=== PATIENT | female | born 1975 | race Caucasian/White ===

== ENCOUNTER 2017-01-12 12:12 | Emergency (ER) | payer OTHER ==
[~2017-01-12] VITALS: Ht 167.6 cm; Wt 97.5 kg
[~2017-01-12 12:12] MED LIST: ALPR1TAB2 PO; BACL10TA PO; BUTA1CAP39 PO; CYCL10TA9 PO; GABA-488 PO; HYDR-3812 PO; HYDR-3816 PO; NAPR550T PO; PRD20T PO
[2017-01-12] MEDS ORDERED: NS IV 1000 ML 1,000 ML IV ONE (13:03)
[2017-01-12] MEDS ORDERED: fentaNYL INJECTION 100 MCG/2 ML AMP IVP STA (13:03)
[2017-01-12] MEDS ORDERED: ONDANSETRON 4 MG/2 ML (SDV) Z0FRAN IVP ONE (13:15)
--- NOTE | 2017-01-12 13:50 | Diagnostic Imaging Report ---
Indication: Chest pain radiating down the right arm. Discussion: Single portable upright view of the chest was obtained, no comparison. The heart and lungs are normal. No osseous abnormality. Impression: 1. Negative portable chest. Dictated by: Dictated on workstation # [id number]
[2017-01-12 14:01] LABS: BASOPHILS % (AUTO) 0 % (0-10); EOSINOPHILS % (AUTO) 0 % (0-10); LYMPHOCYTES # (AUTO) 2.1 X 10^3 (1.0-4.0); LYMPHOCYTES % (AUTO) 22 % (12-44); MEAN CORPUSCULAR HEMOGLOBIN 23 PG (25-34); MEAN CORPUSCULAR HGB CONC 31 G/DL (32-36); MEAN CORPUSCULAR VOLUME 73 FL (80-99); MEAN PLATELET VOLUME 11.9 FL (7.4-10.4); MONOCYTES # (AUTO) 0.7 X 10^3 (0.0-1.0); MONOCYTES % (AUTO) 7 % (0-12); NEUTROPHILS # (AUTO) 6.7 X 10^3 (1.8-7.8); NEUTROPHILS % (AUTO) 70 % (42-75); PLATELET COUNT 291 10^3/uL (130-400); RED BLOOD COUNT 5.24 10^6/uL (4.35-5.85); RED CELL DISTRIBUTION WIDTH 16.2 % (10.0-14.5); WHITE BLOOD COUNT 9.5 10^3/uL (4.3-11.0)
--- NOTE | 2017-01-12 14:01 | ED General ---
General Chief Complaint: Head/Cervical Problems Stated Complaint: NECK/RIGHT SHOULDER ARM PAIN Nursing Triage Note: Pt had a epidural on in for a "pinched nerve" from a work related incident at [facility]. Today at 1000 pt noticed increased neck pain and right arm tingling/numbness. Had fever over the weekend. Nursing Sepsis Screen: No Definite Risk Source of Information: Patient Exam Limitations: No Limitations (CAROL BARNES) Allergies and Home Medications Allergies Coded Allergies: aspirin (Unverified Allergy, Unknown, 06/23/16) azithromycin (Unverified Allergy, Unknown, 06/23/16) diclofenac (Unverified Allergy, Unknown, 06/23/16) morphine (Unverified Allergy, Unknown, 06/23/16) Home Medications Baclofen 10 Mg Tablet, 10 MG PO TID, (Reported) Cefdinir 300 Mg Capsule, 300 MG PO BID, #14 Ref 0 Prescribed by: CAROL BARNES on 01/12/17 1525 Gabapentin 300 Mg Capsule, 300 MG PO TID, (Reported) Hydrocodone/Acetaminophen 1 Each Tablet, 1 EACH PO Q4H PRN for PAIN, #14 Ref 0 Prescribed by: CAROL BARNES on 01/12/17 1525 Naproxen Sodium 550 Mg Tablet, 550 MG PO BID, (Reported) Past Ubjifrm-Lvskjl-Wwzzws Hx Patient Social History Recent Foreign Travel: No Contact w/Someone Who Travel: No Recent Infectious Disease Expo: No Recent Hopitalizations: No (CAROL BARNES) Surgeries HX Surgeries: Yes Surgeries: Tonsillectomy, Tubal Ligation (CAROL BARNES) Respiratory Hx Respiratory Disorders: No (CAROL BARNES) Cardiovascular Hx Cardiac Disorders: No (CAROL BARNES) Neurological Hx Neurological Disorders: Yes Neurological Disorders: Headaches /Migraines (CAROL BARNES) Reproductive System Hx 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 (CAROL BARNES) Genitourinary Hx Genitourinary Disorders: No (CAROL ABRNES) Gastrointestinal Hx Gastrointestinal Disorders: No (CAROL BARNES) Musculoskeletal Hx Musculoskeletal Disorders: Yes Musculoskeletal Disorders: Back Injury (CAROL BARNES) Endocrine Hx Endocrine Disorders: No (CAROL BARNES) HEENT HX ENT Disorders: No (ACROL BARNES) Cancer Hx Cancer: No (CAROL BARNES) Psychosocial Hx Psychiatric Problems: Yes Behavioral Health Disorders: Anxiety (CAROL BARNES) Integumentary HX Skin/Integumentary Disorder: No (CAROL BARNES) Blood Transfusions Hx Blood Disorders: Yes (ANEMIA) Adverse Reaction to a Blood Tr: No (CAROL BARNES) Family Medical History Significant Family History: No Pertinent Family Hx (CAROL BARNES) Physical Exam Vital Signs Vital Sign - Last 12Hours 01/12/17 12:30 Temp 97.5 Pulse 120 Resp 20 B/P (MAP) 143/95 Pulse Ox 98 (ALFA CALDERON MD) Vital Signs Capillary Refill : Less Than 3 Seconds (CAROL BARNES) Focused Exam Lactic Acid Level Laboratory Tests Test 01/12/17 14:10 Lactic Acid Level 0.95 MMOL/L (0.50-2.00) (ALFA CALDERON MD) Progress/Results/Core Measures Results/Orders Lab Results Laboratory Tests Test 01/12/17 13:50 01/12/17 14:10 Range/Units White Blood Count 9.5 4.3-11.0 10^3/uL Red Blood Count 5.24 4.35-5.85 10^6/uL Hemoglobin 11.8 11.5-16.0 G/DL Hematocrit 38 35-52 % Mean Corpuscular Volume 73 L 80-99 FL Mean Corpuscular Hemoglobin 23 L 25-34 PG Mean Corpuscular Hemoglobin Concent 31 L 32-36 G/DL Red Cell Distribution Width 16.2 H 10.0-14.5 % Platelet Count 291 130-400 10^3/uL Mean Platelet Volume 11.9 H 7.4-10.4 FL Neutrophils (%) (Auto) 70 42-75 % Lymphocytes (%) (Auto) 22 12-44 % Monocytes (%) (Auto) 7 0-12 % Eosinophils (%) (Auto) 0 0-10 % Basophils (%) (Auto) 0 0-10 % Neutrophils # (Auto) 6.7 1.8-7.8 X 10^3 Lymphocytes # (Auto) 2.1 1.0-4.0 X 10^3 Monocytes # (Auto) 0.7 0.0-1.0 X 10^3 Eosinophils # (Auto) 0.0 0.0-0.3 10^3/uL Basophils # (Auto) 0.0 0.0-0.1 10^3/uL Erythrocyte Sedimentation Rate 12 0-20 MM/HR Sodium Level 141 135-145 MMOL/L Potassium Level 3.7 3.6-5.0 MMOL/L Chloride Level 110 H 98-107 MMOL/L Carbon Dioxide Level 22 21-32 MMOL/L Anion Gap 9 5-14 MMOL/L Blood Urea Nitrogen 14 7-18 MG/DL Creatinine 0.86 0.60-1.30 MG/DL Estimat Glomerular Filtration Rate > 60 BUN/Creatinine Ratio 16 Glucose Level 94 70-105 MG/DL Calcium Level 9.1 8.5-10.1 MG/DL Total Bilirubin 0.2 0.1-1.0 MG/DL Aspartate Amino Transf (AST/SGOT) 14 5-34 U/L Alanine Aminotransferase (ALT/SGPT) 20 0-55 U/L Alkaline Phosphatase 85 40-136 U/L C-Reactive Protein High Sensitivity 0.07 0.00-0.50 MG/DL Total Protein 7.4 6.4-8.2 G/DL Albumin 4.2 3.2-4.5 G/DL Lactic Acid Level 0.95 0.50-2.00 MMOL/L (ALFA CALDERON MD) Micro Results Microbiology 01/12/17 Influenza Types A,B Antigen (RADHA) - Final, Complete (ALFA CALDERON MD) Medications Given in ED Current Medications Medications Dose Ordered Sig/Lilliana Route Start Time Stop Time Status Last Admin Dose Admin Ceftriaxone Sodium 1000 mg/ Sodium Chloride 50 ml @ 100 mls/hr ONCE ONCE IV 01/12/17 15:15 01/12/17 15:44 01/12/17 15:23 100 MLS/HR Ondansetron HCl 4 mg ONCE ONCE IVP 01/12/17 13:15 01/12/17 13:16 DC 01/12/17 13:49 4 MG Sodium Chloride 1,000 ml @ 0 mls/hr Q0M ONCE IV 01/12/17 13:03 01/12/17 13:09 DC 01/12/17 13:50 1,000 MLS/HR (ALFA CALDERON MD) Vital Signs/I&O Vital Sign - Last 12Hours 01/12/17 01/12/17 12:30 13:49 Temp 97.5 99.7 Pulse 120 Resp 20 B/P (MAP) 143/95 Pulse Ox 98 (ALFA CALDERON MD) Blood Pressure Mean: 111 Progress Note : Progress Note Seen and evaluated the patient with STELLA Land. I have reviewed the labs. Currently patient's redness of her arm and chest are decreased. There is a question of mild swelling to the right arm. Due to her history, we will initiate treatment with cephalosporin and have her follow up with her doctor. Rocephin 1 g IV and outpatient treatment with Ceftin air ordered. Discharged her Carol Barnes's note. (ALFA CALDERON MD) Departure Impression Impression: Primary Impression: Pain of right upper extremity Additional Impressions: Headache S/P epidural steroid injection Disposition: HOME, SELF-CARE Condition: Improved Departure-Patient Inst. Decision time for Depature: 15:23 (CAROL BARNES) Referrals: [facility] (PCP/Family) Primary Care Physician Patient Instructions: Acute Pain, Adult (DC) Add. Discharge Instructions: All discharge instructions reviewed with patient and/or family. Voiced understanding. Medications as directed. Ice packs or heating pads as needed for pain. Continue activity as instructed by your provider. Follow-up with family practitioner and your request, physician for recheck, call for appointment time today. Return to the emergency department for worsened pain, fever, headache, numbness, weakness, redness, drainage, or any other concerns. Scripts Hydrocodone/Acetaminophen (Hydrocodon -Acetaminophen 5-325) 1 Each Tablet 1 EACH PO Q4H Y for PAIN, #14 TAB 0 Refills Prov: CAROL BARNES 01/12/17 Cefdinir (Cefdinir) 300 Mg Capsule 300 MG PO BID, #14 CAP 0 Refills Prov: CAROL BARNES 01/12/17 CAROL BARNES Jan 12, 2017 14:01 ALFA CALDERON MD Jan 12, 2017 15:40
[2017-01-12 14:20] LABS: ALANINE AMINOTRANSFERASE 20 U/L (0-55); ALBUMIN 4.2 G/DL (3.2-4.5); ANION GAP 9 MMOL/L (5-14); ASPARTATE AMINO TRANSFERASE 14 U/L (5-34); BILIRUBIN,TOTAL 0.2 MG/DL (0.1-1.0); BLOOD UREA NITROGEN 14 MG/DL (7-18); BUN/CREATININE RATIO 16; CALCIUM 9.1 MG/DL (8.5-10.1); CARBON DIOXIDE 22 MMOL/L (21-32); CHLORIDE 110 MMOL/L (98-107); CREATININE SERUM 0.86 MG/DL (0.60-1.30); ERYTHROCYTE SEDIMENTATION RATE 12 MM/HR (0-20); GFR ESTIMATED > 60; GLUCOSE 94 MG/DL (70-105); POTASSIUM 3.7 MMOL/L (3.6-5.0); SODIUM 141 MMOL/L (135-145); TOTAL PROTEIN 7.4 G/DL (6.4-8.2); hs C REACTIVE PROTEIN 0.07 MG/DL (0.00-0.50)
--- NOTE | 2017-01-12 14:25 | Diagnostic Imaging Report ---
PROCEDURE: CT cervical spine without contrast. TECHNIQUE: Multiple contiguous axial images were obtained through the cervical spine without the use of intravenous contrast. Sagittal and coronal reformations were then performed. INDICATION: Neck pain. Right shoulder pain. FINDINGS: There is straightening of the cervical spine curvature. The vertebral body heights are preserved. There is moderate disc height loss at the C5-C6 and C6-C7 levels. Posterior osteophytes are seen at these two levels as well. There is satisfactory alignment at the posterior spinal line, at the facet joints and at the atlanto-occipital joints. Satisfactory alignment at the lateral masses of C1 and C2 is also seen. No fracture is identified. There is [id number] foraminal stenosis on the left side at the C6-C7 level and moderate stenosis on the right side at C5-C6. Other foramina demonstrate no significant stenosis. There is suggestion of spinal canal stenosis at C6-C7 as well. Effect on the thecal sac and the spinal cord would be better assessed on a CT myelogram. IMPRESSION: Prominent degenerative changes at the C5-C6 and C6-C7 levels. There are posterior osteophytes noted at these levels particularly at C6-C7 with suggestion of underlying spinal canal stenosis. Better assessment of effect on the thecal sac and spinal cord would be obtained with a MRI, if clinically indicated. Dictated by: Dictated on workstation # [id number]
[2017-01-12] MEDS ORDERED: cefTRIAXone INJECTION 1,000 MG in NS (IVPB) 50 ML IV ONE (15:15)
[2017-01-12] MEDS ORDERED: HYDR-3812 PO (15:25)
[2017-01-12] MEDS ORDERED: CEFD300C3 PO (15:25)
[2017-01-12 16:15] VITALS: BP 140/92
== END 2017-01-12 16:15 | disposition home or self-care (01) ==
LOC: EDUNIT# 12:12 → ER 12:15
DX: M79.601 Pain in right arm (principal); R51 Headache; Z98.890 Other specified postprocedural states
CPT/HCPCS: 36415; 71010; 72125; 80053; 83605; 85025; 85652; 86141; 87040; 87804; 96365; 96375

== ENCOUNTER → 2017-02-22 | Outpatient (CLI) | payer OTHER ==
[~2017-02-22] MED LIST changes: +CEFD300C3 PO
[2017-02-22 18:48] LABS: BASOPHILS % (AUTO) 0 % (0-10); EOSINOPHILS # (AUTO) 0.1 10^3/uL (0.0-0.3); EOSINOPHILS % (AUTO) 1 % (0-10); LYMPHOCYTES # (AUTO) 2.3 X 10^3 (1.0-4.0); LYMPHOCYTES % (AUTO) 40 % (12-44); MEAN CORPUSCULAR HEMOGLOBIN 23 PG (25-34); MEAN CORPUSCULAR HGB CONC 31 G/DL (32-36); MEAN CORPUSCULAR VOLUME 74 FL (80-99); MEAN PLATELET VOLUME 11.1 FL (7.4-10.4); MONOCYTES # (AUTO) 0.5 X 10^3 (0.0-1.0); MONOCYTES % (AUTO) 8 % (0-12); NEUTROPHILS # (AUTO) 2.9 X 10^3 (1.8-7.8); NEUTROPHILS % (AUTO) 51 % (42-75); PLATELET COUNT 312 10^3/uL (130-400); RED BLOOD COUNT 5.06 10^6/uL (4.35-5.85); RED CELL DISTRIBUTION WIDTH 16.9 % (10.0-14.5); WHITE BLOOD COUNT 5.7 10^3/uL (4.3-11.0)
[2017-02-22 18:49] LABS: BILIRUBIN,URINE NEGATIVE (NEGATIVE); KETONES,URINE NEGATIVE (NEGATIVE); LEUKOCYTE ESTERASE ,URINE 1+ (NEGATIVE); NITRITE,URINE POSITIVE (NEGATIVE); PH,URINE 7 (5-9); PROTEIN,URINE NEGATIVE (NEGATIVE); UROBILINOGEN,URINE NORMAL (NORMAL)
[2017-02-22 19:00] LABS: INR 0.9 (0.8-1.4); PROTHROMBIN TIME PATIENT 12.3 SEC (12.2-14.7)
[2017-02-22 19:11] LABS: ANION GAP 13 MMOL/L (5-14); BLOOD UREA NITROGEN 8 MG/DL (7-18); BUN/CREATININE RATIO 10; CALCIUM 9.3 MG/DL (8.5-10.1); CARBON DIOXIDE 23 MMOL/L (21-32); CHLORIDE 106 MMOL/L (98-107); CREATININE SERUM 0.81 MG/DL (0.60-1.30); GFR ESTIMATED > 60; GLUCOSE 100 MG/DL (70-105); POTASSIUM 3.8 MMOL/L (3.6-5.0); SODIUM 142 MMOL/L (135-145)
== END ==
LOC: LAB 18:07
PROVIDERS: ATTEND Orthopaedic Surgery Orthopaedic Surgery of the Spine
DX: Z01.812 Encounter for preprocedural laboratory examination (principal); M50.120 Mid-cervical disc disorder, unspecified level; M48.02 Spinal stenosis, cervical region
CPT/HCPCS: 36415; 80048; 81000; 84703; 85025; 85610; 85730; 86850; 86900; 86901; 87077; 87088; 87186

== ENCOUNTER 2017-03-10 23:41 | Emergency (ER) | payer OTHER ==
[~2017-03-10] VITALS: Ht 167.6 cm; Wt 99.8 kg
[2017-03-11] MEDS ORDERED: oxyCODONE/APAP 5/325MG (PERCOCET 5) TABLET PO STA (00:07)
[2017-03-11] MEDS ORDERED: fentaNYL INJECTION 100 MCG/2 ML AMP IM STA (00:07)
[2017-03-11] MEDS ORDERED: AMIT50TA3 (00:09)
[2017-03-11] MEDS ORDERED: CYCL10TA9 (00:09)
--- NOTE | 2017-03-11 00:35 | ED General ---
General Chief Complaint: General Problems/Pain Stated Complaint: POST OP SURGERY PAIN Nursing Triage Note: POST OP NECK FUSION (C-7) ON 03/03. HAS HAD PROBLEMS TAKING THE HYDROCODONE POST OP WITH ITCHING AND CHEST HEAVINESS. WAS REMOVED OFF HYDROCODOONE TODAY AND GIVEN STEROID SHOT AT [facility]. Nursing Sepsis Screen: No Definite Risk Source of Information: Patient Exam Limitations: No Limitations History of Present Illness Time Seen by Provider: 00:03 Initial Comments Here with report of postoperative pain to the neck. She had been on hydrocodone but was having adverse effect related to this medicine including chest heaviness and itching. She was taken off that and started on tramadol. This has caused her to have intractable pain and she is here for pain that is uncontrolled after surgery. Denies breathing problems or nausea or vomiting currently. She did have a steroid shot earlier today and is on Benadryl. Timing/Duration: 4-6 Hours Severity: Moderate Associated Systoms: Cough (with hydrocodone that resolved now), No Shortness of Air Allergies and Home Medications Allergies Coded Allergies: aspirin (Unverified Allergy, Unknown, 06/23/16) azithromycin (Unverified Allergy, Unknown, 06/23/16) diclofenac (Unverified Allergy, Unknown, 06/23/16) morphine (Unverified Allergy, Unknown, 06/23/16) hydrocodone (Verified Adverse Reaction, Intermediate, ITCHING/CHEST HEAVINESS, 03/11/17) Uncoded Allergies: GABEPENTIN (Adverse Reaction, Intermediate, SWELLING, 03/11/17) Home Medications Amitriptyline HCl 50 Mg Tablet, #60 (Reported) Cyclobenzaprine HCl 10 Mg Tablet, #30 (Reported) Constitutional: see HPI, No chills, No fever EENTM: no symptoms reported Respiratory: no symptoms reported Cardiovascular: see HPI Gastrointestinal: no symptoms reported Genitourinary: no symptoms reported Musculoskeletal: see HPI, muscle pain, neck pain Skin: see HPI Psychiatric/Neurological: No Symptoms Reported All Other Systems Reviewed Negative Unless Noted: Yes Past Ucckexg-Apehsz-Vipzbt Hx Patient Social History Alcohol Use: Denies Use Recreational Drug Use: No Smoking Status: Never a Smoker 2nd Hand Smoke Exposure: No Recent Foreign Travel: No Contact w/Someone Who Travel: No Recent Infectious Disease Expo: No Recent Hopitalizations: No Seasonal Allergies Seasonal Allergies: No Surgeries HX Surgeries: Yes Surgeries: Orthopedic, Tonsillectomy, Tubal Ligation Respiratory Hx Respiratory Disorders: No Cardiovascular Hx Cardiac Disorders: No Neurological Hx Neurological Disorders: Yes Neurological Disorders: Headaches /Migraines Reproductive System Hx Reproductive Disorders: 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 Genitourinary Hx Genitourinary Disorders: No Gastrointestinal Hx Gastrointestinal Disorders: No Musculoskeletal Hx Musculoskeletal Disorders: Yes (chronic neck injury/pain) Musculoskeletal Disorders: Back Injury Endocrine Hx Endocrine Disorders: No HEENT HX ENT Disorders: No Cancer Hx Cancer: No Psychosocial Hx Psychiatric Problems: Yes Behavioral Health Disorders: Anxiety Integumentary HX Skin/Integumentary Disorder: No Blood Transfusions Hx Blood Disorders: Yes (ANEMIA) Adverse Reaction to a Blood Tr: No Reviewed Nursing Assessment Reviewed/Agree w Nursing PMH: Yes Family Medical History Significant Family History: No Pertinent Family Hx Physical Exam Vital Signs Vital Sign - Last 12Hours 03/10/17 23:53 Temp 97.3 Pulse 133 Resp 20 B/P (MAP) 151/116 Pulse Ox 98 O2 Delivery Room Air Capillary Refill : Less Than 3 Seconds General Appearance: WD/WN, Moderate Distress (related to postop pain) HEENT: PERRL/EOMI, Pharynx Normal Neck: Supple, Other (anterior surgical wound is clean, dry and intact without signs of infection.) Respiratory: Lungs Clear, Normal Breath Sounds Cardiovascular: No Murmur, Tachycardia Gastrointestinal: Non Tender, Soft Back: Normal Inspection, No CVA Tenderness, No Vertebral Tenderness Extremity: Non Tender, No Calf Tenderness Neurologic/Psychiatric: Alert, Oriented x3 Skin: Normal Color, Warm/Dry Progress/Results/Core Measures Results/Orders My Orders Orders - ALFA CALDERON MD Fentanyl Injection (Sublimaze Injection (03/11/17 00:07) Oxycodone/Apap 5/325mg Tablet (Percocet (03/11/17 00:07) Rx-Oxycodone/Apap 5-325 Mg (Rx-Percocet (03/11/17 01:15) Vital Signs/I&O Vital Sign - Last 12Hours 03/10/17 03/11/17 03/11/17 23:53 00:15 00:16 Temp 97.3 97.3 97.3 Pulse 133 Resp 20 B/P (MAP) 151/116 Pulse Ox 98 O2 Delivery Room Air Blood Pressure Mean: 128 Progress Note : Progress Note Seen and evaluated. Fentanyl 50 g IM. Percocet 2 tabs by mouth given. Monitor patient. 0110: Patient much improved. Discharged home with a go pack of Percocet. Discharge home with return precautions. Patient verbalize understanding instructions and agreement with plan. Departure Impression Impression: Primary Impression: Post-operative pain Disposition: HOME, SELF-CARE Condition: Stable Departure-Patient Inst. Decision time for Depature: 01:14 Referrals: [facility] (PCP/Family) Primary Care Physician Patient Instructions: Postoperative Pain (DC) Add. Discharge Instructions: All discharge instructions reviewed with patient and/or family. Voiced understanding. Take medications as directed. Follow-up with your doctor for recheck and further evaluation. Return for worse pain, weakness, breathing problems, chest pain, rash or other concerns as needed. You may take Benadryl 25 mg every 6 hours as needed for itching. Scripts Oxycodone HCl/Acetaminophen (Oxycodone-Acetaminophen 5-325) 1 Each Tablet 1-2 EACH PO Q6H Y for PAIN, #20 TAB 0 Refills Prov: ALFA CALDERON MD 03/11/17 ALFA CALDERON MD Mar 11, 2017 00:35
[2017-03-11] MEDS ORDERED: RX-OXYCODONE/APAP 5-325 MG #4 TAB PK PO PRN (01:15)
[2017-03-11] MEDS ORDERED: OXYC-471 PO (01:15)
[2017-03-11 01:19] VITALS: BP 140/102
== END 2017-03-11 01:19 | disposition home or self-care (01) ==
LOC: EDUNIT# 23:41 → ER 23:43
DX: G89.18 Other acute postprocedural pain (principal); M54.2 Cervicalgia; Z98.890 Other specified postprocedural states
CPT/HCPCS: 99283

== ENCOUNTER 2020-02-07 13:42 | Emergency (ER) | payer SELFPAY ==
[~2020-02-07] VITALS: Ht 175 cm; Wt 81.6 kg
[~2020-02-07 13:42] MED LIST changes: +ACHD5005 PO; +AMIT50TA3; +CYCL10TA9; +HYDR-34 PO; -HYDR-3812 PO; -HYDR-3816 PO; +NAPR-1070 PO; -NAPR550T PO; +OXYC-471 PO
--- NOTE | 2020-02-07 15:14 | ED Syncope ---
General Chief Complaint: Dizziness/Syncope Stated Complaint: FAINTING;HEAD INJ Nursing Triage Note: Pt presents to ED after having 2 reported syncopal episodes at home. Pt reports having headache and dizziness since 02/04 and high BP at home. Pt reports collapsing after getting out of shower today. Pt contacted PCP about dizziness and syncopal episodes and was sent to ED for possible head injury due to syncopal episode. Pt denies any pain due to fall or obvious exterior head injury upon initial examination. Pt reports similar syncopal episodes in the past and states it is more frequent when she is on her period. Source of Information: Patient Exam Limitations: No Limitations History of Present Illness Date Seen by Provider: February 07, 2020 Time Seen by Provider: 15:12 Initial Comments To ER with reports of fainting and head injury. She has a history of anemia, she thinks that her last hemoglobin was around 6. She's been taking iron suppl ements, she has heavy periods. She states that she's been anemic since she was much younger. She denies any chest pain or shortness of breath. Today while getting out of the shower she felt lightheaded and fell to the floor. She believes she was out for a few minutes before awakening and got herself up to the bed and then lost consciousness again. Timing/Prior Episodes: No Prior History Symptoms Prior to Episode: Lightheadedness Precipitating Factors: None Loss of Consciousness: No Loss of Consciousness Current Symptoms: Other Allergies and Home Medications Allergies Coded Allergies: aspirin (Unverified Allergy, Unknown, 06/23/16) azithromycin (Unverified Allergy, Unknown, 06/23/16) diclofenac (Unverified Allergy, Unknown, 06/23/16) morphine (Unverified Allergy, Unknown, 06/23/16) hydrocodone (Verified Adverse Reaction, Intermediate, ITCHING/CHEST HEAVINESS, 03/11/17) Uncoded Allergies: GABEPENTIN (Adverse Reaction, Intermediate, SWELLING, 03/11/17) Home Medications Oxycodone HCl/Acetaminophen 1 Each Tablet, 1-2 EACH PO Q6H PRN for PAIN Prescribed by: ALFA CALDERON on 03/11/17 0391 Patient Home Medication List Home Medication List Reviewed: Yes Review of Systems Constitutional: see HPI EENTM: see HPI Respiratory: no symptoms reported Cardiovascular: no symptoms reported Genitourinary: no symptoms reported Musculoskeletal: see HPI Skin: no symptoms reported Psychiatric/Neurological: No Symptoms Reported Past Oizbffg-Lxevaz-Ekxpeh Hx Patient Social History Alcohol Use: Denies Use Recreational Drug Use: No Smoking Status: Never a Smoker 2nd Hand Smoke Exposure: No Recent Foreign Travel: No Contact w/Someone Who Travel: No Recent Infectious Disease Expo: No Recent Hopitalizations: No Seasonal Allergies Seasonal Allergies: No Past Medical History Surgeries: Yes (FUSION C-7) Orthopedic, Tonsillectomy, Tubal Ligation Respiratory: No Cardiac: No Neurological: Yes Headaches /Migraines Reproductive Disorders: 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 oz. 99.606170ei; 26.00 BMI Method:Stated General Appearance: No Apparent Distress, WD/WN HEENT: PERRL/EOMI, TMs Normal Neck: Full Range of Motion, Normal Inspection Respiratory: Lungs Clear, Normal Breath Sounds, No Accessory Muscle Use, No Respiratory Distress Gastrointestinal: Normal Bowel Sounds, Non Tender, Soft Extremities: Normal Capillary Refill, Normal Inspection Neurologic/Psychiatric: Alert, Oriented x3 Cranial Nerves: Normal Hearing, Normal Speech, PERRL Skin: Normal Color, Warm/Dry Progress/Results/Core Measures Results/Orders Lab Results Laboratory Tests Test 02/07/20 15:10 02/07/20 15:24 Range/Units White Blood Count 5.1 4.3-11.0 10^3/uL Red Blood Count 4.79 4.35-5.85 10^6/uL Hemoglobin 10.7 L 11.5-16.0 G/DL Hematocrit 35 35-52 % Mean Corpuscular Volume 73 L 80-99 FL Mean Corpuscular Hemoglobin 22 L 25-34 PG Mean Corpuscular Hemoglobin Concent 31 L 32-36 G/DL Red Cell Distribution Width 17.2 H 10.0-14.5 % Platelet Count 238 130-400 10^3/uL Mean Platelet Volume 11.9 H 7.4-10.4 FL Neutrophils (%) (Auto) 76 H 42-75 % Lymphocytes (%) (Auto) 16 12-44 % Monocytes (%) (Auto) 7 0-12 % Eosinophils (%) (Auto) 0 0-10 % Basophils (%) (Auto) 0 0-10 % Neutrophils # (Auto) 3.9 1.8-7.8 X 10^3 Lymphocytes # (Auto) 0.8 L 1.0-4.0 X 10^3 Monocytes # (Auto) 0.4 0.0-1.0 X 10^3 Eosinophils # (Auto) 0.0 0.0-0.3 10^3/uL Basophils # (Auto) 0.0 0.0-0.1 10^3/uL Prothrombin Time 13.1 12.2-14.7 SEC INR Comment 1.0 0.8-1.4 Activated Partial Thromboplast Time 30 24-35 SEC Sodium Level 140 135-145 MMOL/L Potassium Level 4.2 3.6-5.0 MMOL/L Chloride Level 110 H 98-107 MMOL/L Carbon Dioxide Level 20 L 21-32 MMOL/L Anion Gap 10 5-14 MMOL/L Blood Urea Nitrogen 12 7-18 MG/DL Creatinine 0.88 0.60-1.30 MG/DL Estimat Glomerular Filtration Rate > 60 BUN/Creatinine Ratio 14 Glucose Level 101 70-105 MG/DL Calcium Level 9.2 8.5-10.1 MG/DL Corrected Calcium 8.5-10.1 MG/DL Total Bilirubin 0.3 0.1-1.0 MG/DL Aspartate Amino Transf (AST/SGOT) 15 5-34 U/L Alanine Aminotransferase (ALT/SGPT) 14 0-55 U/L Alkaline Phosphatase 47 40-136 U/L Total Protein 7.4 6.4-8.2 GM/DL Albumin 4.6 H 3.2-4.5 GM/DL Serum Test, Qualitative NEGATIVE NEGATIVE Iron Level 21 L 35-180 ug/dL Total Iron Binding Capacity 451 H 280-380 ug/dL Unsaturated Iron Binding Capacity 430 55-450 ug/dL Transferrin % Saturation 5 L 15-50 % My Orders Orders - SERA FRIED APRN Cbc With Automated Diff (02/07/20 15:04) Comprehensive Metabolic Panel (02/07/20 15:04) Hcg,Qualitative Serum (02/07/20 15:04) Ed Iv/Invasive Line Start (02/07/20 15:04) Iron Tibc %Sat & Ferritin (02/07/20 15:04) Protime With Inr (02/07/20 15:04) Partial Thromboplastin Time (02/07/20 15:04) Ekg Tracing (02/07/20 15:04) Ct Head Wo (02/07/20 15:04) Ketorolac Injection (Toradol Injection) (02/07/20 15:30) Orphenadrine Injection (Norflex Injectio (02/07/20 15:30) Ns Iv 1000 Ml (Sodium Chloride 0.9%) (02/07/20 15:45) Prochlorperazine Injection (Compazine In (02/07/20 16:45) Diphenhydramine Injection (Benadryl Inje (02/07/20 16:45) Medications Given in ED Current Medications Medications Dose Ordered Sig/Lilliana Route Start Time Stop Time Status Last Admin Dose Admin Diphenhydramine HCl 25 mg ONCE ONCE IVP 02/07/20 16:45 02/07/20 16:46 DC 02/07/20 16:43 25 MG Ketorolac Tromethamine 15 mg ONCE ONCE IVP 02/07/20 15:30 02/07/20 15:31 DC 02/07/20 16:03 15 MG Orphenadrine Citrate 60 mg ONCE ONCE IV 02/07/20 15:30 02/07/20 15:31 DC 02/07/20 16:03 60 MG Prochlorperazine Edisylate 5 mg ONCE ONCE IV 02/07/20 16:45 02/07/20 16:46 DC 02/07/20 16:45 5 MG Vital Signs/I&O 02/07/20 14:25 Temp 36.9 Pulse 104 Resp 18 B/P (MAP) 139/88 (105) Pulse Ox 99 O2 Delivery Room Air Blood Pressure Mean: 105 Departure Impression Primary Impression: Syncope Additional Impression: Headache Disposition: 01 HOME, SELF-CARE Condition: Stable Departure-Patient Inst. Decision time for Depature: 16:09 Referrals: [facility] (PCP/Family) Primary Care Physician Patient Instructions: Syncope (Fainting) (DC), Headache, Adult Add. Discharge Instructions: 1. Return to ER for any concerns 2. Call your family doctor tomorrow to make an appointment to be seen to discuss Holter monitor placement and to address the blood pressure issues. All discharge instructions reviewed with patient and/or family. Voiced understanding. SERA FRIED DIETETIC AIDE February 07, 2020 15:14
[2020-02-07 15:22] LABS: BASOPHILS % (AUTO) 0 % (0-10); EOSINOPHILS % (AUTO) 0 % (0-10); HEMATOCRIT 35 % (35-52); HEMOGLOBIN 10.7 G/DL (11.5-16.0); LYMPHOCYTES # (AUTO) 0.8 X 10^3 (1.0-4.0); LYMPHOCYTES % (AUTO) 16 % (12-44); MEAN CORPUSCULAR HEMOGLOBIN 22 PG (25-34); MEAN CORPUSCULAR HGB CONC 31 G/DL (32-36); MEAN CORPUSCULAR VOLUME 73 FL (80-99); MEAN PLATELET VOLUME 11.9 FL (7.4-10.4); MONOCYTES # (AUTO) 0.4 X 10^3 (0.0-1.0); MONOCYTES % (AUTO) 7 % (0-12); NEUTROPHILS # (AUTO) 3.9 X 10^3 (1.8-7.8); NEUTROPHILS % (AUTO) 76 % (42-75); PLATELET COUNT 238 10^3/uL (130-400); RED CELL DISTRIBUTION WIDTH 17.2 % (10.0-14.5); WHITE BLOOD COUNT 5.1 10^3/uL (4.3-11.0)
[2020-02-07] MEDS ORDERED: ORPHENADRINE 60 MG/2 ML (NORFLEX) AMP IV ONE (15:30)
[2020-02-07] MEDS ORDERED: KETOROLAC 30 MG/ML VIAL IVP ONE (15:30)
[2020-02-07 15:31] LABS: ALBUMIN 4.6 GM/DL (3.2-4.5); CHLORIDE 110 MMOL/L (98-107); POTASSIUM 4.2 MMOL/L (3.6-5.0); SODIUM 140 MMOL/L (135-145)
[2020-02-07 15:33] LABS: CALCIUM 9.2 MG/DL (8.5-10.1)
[2020-02-07 15:34] LABS: GLUCOSE 101 MG/DL (70-105); PROTHROMBIN TIME PATIENT 13.1 SEC (12.2-14.7); TOTAL PROTEIN 7.4 GM/DL (6.4-8.2)
[2020-02-07 15:35] LABS: CARBON DIOXIDE 20 MMOL/L (21-32)
[2020-02-07 15:36] LABS: BILIRUBIN,TOTAL 0.3 MG/DL (0.1-1.0)
[2020-02-07 15:37] LABS: ALKALINE PHOSPHATASE 47 U/L (40-136); CREATININE SERUM 0.88 MG/DL (0.60-1.30); GFR ESTIMATED > 60
[2020-02-07 15:38] LABS: BUN/CREATININE RATIO 14
[2020-02-07 15:40] LABS: ALANINE AMINOTRANSFERASE 14 U/L (0-55)
[2020-02-07] MEDS ORDERED: NS IV 1000 ML 1,000 ML IV SCH (15:45)
--- NOTE | 2020-02-07 15:58 | Diagnostic Imaging Report ---
CLINICAL INDICATION: Patient passed out and woke up on the floor. Patient has pain behind both eyes and right posterior fossa. EXAM: Axial CT scan of the brain performed without IV contrast. COMPARISON: None. FINDINGS: There is skull streak artifact which obscures portions of the brainstem, posterior fossa, and portions of the brain near the skull base. There is no evidence of acute cerebral infarct, intracranial hemorrhage, or gross mass effect. The brain parenchymal volume appears appropriate for patient's age. There is normal garcia-white matter distinction. There is no significant midline shift or herniation. There is no evidence of hydrocephalus. The basal cisterns are unremarkable. The skull, extracranial soft tissue, and orbits are unremarkable. The paranasal sinuses are unremarkable. The temporal bones show no significant abnormality. IMPRESSION: Unremarkable CT scan of the brain. Dictated by: Dictated on workstation # [id number]
--- NOTE | 2020-02-07 16:37 | NUR ---
Pt c/o headache and nausea. Pain 06/14. Jf Chapin notifed.
[2020-02-07] MEDS ORDERED: PROCHLORPERAZINE 10 MG/2ML INJ (COMPAZINE) IV ONE (16:45)
[2020-02-07] MEDS ORDERED: diphenhydrAMINE 50 MG/ML INJ (BENADRYL) IVP ONE (16:45)
[2020-02-07 17:19] VITALS: BP 166/88
--- NOTE | 2020-02-07 17:36 | NUR ---
Pt signed discharge form, but must have taken it with pt as form was not in room.
== END 2020-02-07 17:19 | disposition home or self-care (01) ==
LOC: EDUNIT# 13:42 → ER 13:43
DX: R55 Syncope and collapse (principal); R51 Headache; Z79.82 Long term (current) use of aspirin; Z88.1 Allergy status to other antibiotic agents; Z88.5 Allergy status to narcotic agent; Z88.8 Allergy status to other drugs, medicaments and biological substances; Z86.69 Personal history of other diseases of the nervous system and sense organs
CPT/HCPCS: 36415; 70450; 80053; 82728; 83540; 84703; 85025; 85610; 85730; 93005

== ENCOUNTER 2020-04-12 05:37 | Outpatient (RCR) | payer BC ==
[~2020-04-12] VITALS: Ht 167 cm; Wt 88.6 kg
[~2020-04-12 05:37] MED LIST changes: +DULO60CA6 PO; +LISI10TA2 PO
== END 2020-04-12 13:42 | disposition home or self-care (01) ==
LOC: PREOP 05:37
PROVIDERS: ATTEND Obstetrics & Gynecology
DX: Z01.812 Encounter for preprocedural laboratory examination (principal); Z20.828 Contact with and (suspected) exposure to other viral communicable diseases; N92.1 Excessive and frequent menstruation with irregular cycle
CPT/HCPCS: 87635

== ENCOUNTER 2020-04-16 09:59 | Day surgery (SDC) | payer BC ==
[2020-04-16] VITALS (13 sets, daily range): BP systolic 101–121; BP diastolic 68–94
[~2020-04-16] VITALS: Ht 167 cm; Wt 88.6 kg
[2020-04-16] MEDS ORDERED: LACTATED RINGERS 1,000 ML IV PRN (10:10)
[2020-04-16 10:37] LABS: BASOPHILS % (AUTO) 1 % (0-10); EOSINOPHILS # (AUTO) 0.1 10^3/uL (0.0-0.3); EOSINOPHILS % (AUTO) 2 % (0-10); HEMATOCRIT 33 % (35-52); HEMOGLOBIN 10.1 G/DL (11.5-16.0); LYMPHOCYTES # (AUTO) 1.2 X 10^3 (1.0-4.0); LYMPHOCYTES % (AUTO) 35 % (12-44); MEAN CORPUSCULAR HEMOGLOBIN 23 PG (25-34); MEAN CORPUSCULAR HGB CONC 31 G/DL (32-36); MEAN CORPUSCULAR VOLUME 74 FL (80-99); MEAN PLATELET VOLUME 12.2 FL (7.4-10.4); MONOCYTES # (AUTO) 0.3 X 10^3 (0.0-1.0); MONOCYTES % (AUTO) 10 % (0-12); NEUTROPHILS # (AUTO) 1.9 X 10^3 (1.8-7.8); NEUTROPHILS % (AUTO) 53 % (42-75); PLATELET COUNT 295 10^3/uL (130-400); RED CELL DISTRIBUTION WIDTH 16.8 % (10.0-14.5); WHITE BLOOD COUNT 3.5 10^3/uL (4.3-11.0)
[2020-04-16] MEDS ORDERED: ONDANSETRON 4 MG/2 ML (SDV) Z0FRAN ONE ×2 (11:10→13:14)
[2020-04-16] MEDS ORDERED: MIDAZOLAM 2 MG/2 ML (VERSED) VIAL ONE (11:10)
[2020-04-16] MEDS ORDERED: LIDOCAINE PF 2% 5 ML (XYLOCAINE) VIAL ONE (11:10)
[2020-04-16] MEDS ORDERED: DEXAMETHASONE 10 MG/ML (DECADRON) 1 ML VIAL ONE (11:10)
[2020-04-16] MEDS ORDERED: SEVOFLURANE (ULTANE) 15 ML INHAL SOLN ONE (11:10)
[2020-04-16] MEDS ORDERED: proPOfol 200 MG/20 ML (DIPRIVAN) VIAL IV ONE (11:10)
[2020-04-16] MEDS ORDERED: fentaNYL INJECTION 100 MCG/2 ML AMP ONE (11:10)
--- NOTE | 2020-04-16 11:38 | History & Physical-OB/GYN ---
History of Present Illness History of Present Illness Reason for visit/HPI Ms. Guzman presents to the hospital for scheduled surgery, Hysteroscopy, D & C, Endometrial Ablation secondary to heavy, prolonged, painful vaginal bleeding. Date of Admission April 16, 2020 Date Seen by a Provider: Apr 16, 2020 Time Seen by a Provider: 11:25 I consulted on this patient on 04/16/20 11:32 Attending Physician Jesus Ghotra DO Admitting Physician Jesus Ghotra DO Consult Allergies and Home Medications Allergies Coded Allergies: azithromycin (Unverified Allergy, Severe, ANAPHYLAXIS, 04/10/20) morphine (Unverified Allergy, Severe, ANAPHYLAXIS, 04/10/20) aspirin (Unverified Allergy, Mild, ITCHING/RASH, 04/10/20) diclofenac (Unverified Allergy, Unknown, UNSURE, 04/10/20) Uncoded Allergies: GABEPENTIN (Adverse Reaction, Intermediate, SWELLING, 03/11/17) Home Medications Duloxetine HCl 60 Mg Capsule.dr, 60 MG PO DAILY, (Reported) Lisinopril 10 Mg Tablet, 10 MG PO DAILY, (Reported) Patient Home Medication List Home Medication List Reviewed: Yes Past Wnexsfr-Rhlntv-Asxmfi Hx Patient Social History Number of Children: 5 Number of living children: 5 Employed/Student: employed Alcohol Use: Rarely Uses Recreational Drug Use: No Smoking Status: Never a Smoker 2nd Hand Smoke Exposure: No Recent Foreign Travel: No Contact w/other who traveled: No Recent Hopitalizations: No Seasonal Allergies Seasonal Allergies: Yes Surgeries Yes (FUSION C-7,SHOULDER) Orthopedic, Tonsillectomy, Tubal Ligation Respiratory No Cardiovascular Yes Hypertension Neurological Yes Headaches /Migraines Reproductive System Hx Reproductive Disorders: No Sexually Transmitted Disease: No HIV/AIDS: No Female Reproductive Disorders: 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 Genitourinary No Gastrointestinal No Musculoskeletal Yes (chronic neck injury/pain) Back Injury Endocrine History of Endocrine Disorders: No HEENT History of HEENT Disorders: No Loss of Vision: Denies Hearing Impairment: Denies Cancer No Psychosocial History of Psychiatric Problem: Yes Behavioral Health Disorders: Anxiety Integumentary History of Skin or Integumenta: No Blood Transfusions History of Blood Disorders: Yes (ANEMIA) Adverse Reaction to a Blood Tr: No (N/A) Family Medical History Significant Family History: No Pertinent Family Hx Review of Systems Constitutional: see HPI Physical Exam Physical Exam Vital Signs Vital Signs Date Time Temp Pulse Resp B/P (MAP) Pulse Ox O2 Delivery O2 Flow Rate FiO2 04/16/20 10:20 36.6 80 18 121/92 (102) 99 Room Air Capillary Refill : Labs Laboratory Tests 04/16/20 10:15: White Blood Count 3.5L, Red Blood Count 4.48, Hemoglobin 10.1L, Hematocrit 33L, Mean Corpuscular Volume 74L, Mean Corpuscular Hemoglobin 23L, Mean Corpuscular Hemoglobin Concent 31L, Red Cell Distribution Width 16.8H, Platelet Count 295, Mean Platelet Volume 12.2H, Neutrophils (%) (Auto) 53, Lymphocytes (%) (Auto) 35, Monocytes (%) (Auto) 10, Eosinophils (%) (Auto) 2, Basophils (%) (Auto) 1, Neutrophils # (Auto) 1.9, Lymphocytes # (Auto) 1.2, Monocytes # (Auto) 0.3, Eosinophils # (Auto) 0.1, Basophils # (Auto) 0.0 General Appearance: No Apparent Distress, WD/WN Respiratory: Chest Non Tender, Lungs Clear, Normal Breath Sounds Cardiovascular: Regular Rate, Rhythm, No Murmur Abdominal: normal bowel sounds, non tender, soft Vagina: WNL Cervix: WNL Cervix OS: closed Uterus: WNL Ovaries: WNL Extremity: Normal Inspection, Non Tender, No Calf Tenderness Assessment/Plan Assessment and Plan Assessment: Abnormal Uterine Bleeding 2. Chronic Blood Loss Anemia 3. Menometrorrhagia 4. Dysmenorrhea Plan: Ms. Guzman is scheduled for a Hysteroscopy, D & C, Endometrial Ablation. The procedure and its associated risks were reviewed. All questions were answered. Admission Diagnosis Admission Status: Other (Same Day Surgery) JESUS GHOTRA DO Apr 16, 2020 11:37
[2020-04-16] MEDS ORDERED: GLYCOPYRROLATE 0.2 MG/ML (ROBINUL) 2 ML VIAL ONE (12:03)
[2020-04-16] MEDS ORDERED: PHENYLEPHRINE 100 MCG/ML 10 ML (ANESTHESIA) SYR ONE (12:16)
[2020-04-16] MEDS ORDERED: ONDANSETRON 4 MG/2 ML (SDV) Z0FRAN IVP PRN (12:45)
[2020-04-16] MEDS ORDERED: HYDROmorphone 2 MG/ML VIAL (DILAUDID) IV ONE (12:45)
[2020-04-16] MEDS ORDERED: KETOROLAC 30 MG/ML VIAL IVP ONE (12:45)
[2020-04-16] MEDS ORDERED: fentaNYL INJECTION 100 MCG/2 ML AMP IVP PRN (12:45)
--- NOTE | 2020-04-16 12:45 | Operative Report ---
Operative Report Date of Procedure/Surgery Apr 16, 2020 Surgeon (s) MAIKOL REAGAN DO Security And Compliance Analyst (s): None Post-Operative Diagnosis Abnormal Uterine Bleeding 2. Chronic Blood Loss Anemia 3. Dysmenorrhea 4. Menometrorrhagia Procedure Performed Hysteroscopy, D & C, Endometrial Ablation (Luh) Description of Procedure Anesthesia Type: MAC Estimated blood loss (mL): 100 ml Specimen(s) collected/removed Endometrial tissue from D & C. Description of the Procedure Ms. Guzman was taken to the Operating Room with IV fluids running. Once in the OR, MAC anesthesia was administered without difficulty. A timeout for the appropriate procedure was done. She was then placed in the dorsal lithotomy position, prepped and draped in the normal sterile fashion. Her bladder was drained. A bivalve speculum was introduced into the vaginal vault. The anterior lip of the cervix was grasped and she was sounded to 9 cm. With Hegar dilators she was dilated in a stepwise manner. The hysteroscope was placed in the intrauterine cavity--moderate amount of "fluffy" endometrial tissue was noted. Utilizing a small sharp curette, curettage was performed until a gritty texture was noted. The Luh Ablation device was placed within the uterine cavity, activated for 120 second, then removed. The single toothed tenaculum was removed from the anterior lip of the cervix--a small amount of bleeding was noted. Monsel's solution was applied to this area to obtain hemostasis. All instruments were removed from the vaginal vault. Ms. Guzman was taken to the Recovery Room in good and stable condition where postoperative orders were instituted. Findings of the Procedure Moderate amount of "fluffy" endometrial tissue within the uterine cavity. Allergies and Home Medications Allergies Coded Allergies: azithromycin (Unverified Allergy, Severe, ANAPHYLAXIS, 04/10/20) morphine (Unverified Allergy, Severe, ANAPHYLAXIS, 04/10/20) aspirin (Unverified Allergy, Mild, ITCHING/RASH, 04/10/20) diclofenac (Unverified Allergy, Unknown, UNSURE, 04/10/20) Uncoded Allergies: GABEPENTIN (Adverse Reaction, Intermediate, SWELLING, 03/11/17) Home Medications Duloxetine HCl 60 Mg Capsule.dr, 60 MG PO DAILY, (Reported) Lisinopril 10 Mg Tablet, 10 MG PO DAILY, (Reported) Patient Home Medication List Home Medication List Reviewed: Yes MAIKOL REAGAN DO Apr 16, 2020 12:45
[2020-04-16] MEDS ORDERED: HYDROmorphone 2 MG/ML VIAL (DILAUDID) ONE (12:56)
[2020-04-16] MEDS ORDERED: KETOROLAC 30 MG/ML VIAL ONE (12:56)
[2020-04-16] MEDS: ONDANSETRON 4 MG/2 ML (SDV) Z0FRAN IVP PRN ×2 (13:18→14:08)
[2020-04-16] MEDS ORDERED: DOXY100C2 PO (13:59)
[2020-04-16] MEDS ORDERED: IBUP-1780 PO (13:59)
[2020-04-16] MEDS ORDERED: ACET-789 PO (13:59)
--- NOTE | 2020-04-16 14:05 | Anesthesia-General Post-Op ---
General Patient Condition Mental Status/LOC: Same as Preop Cardiovascular: Satisfactory Nausea/Vomiting: Absent Respiratory: Satisfactory Pain: Controlled Complications: Absent Post Op Complications Complications None Follow Up Care/Instructions Patient Instructions None needed. Anesthesia/Patient Condition Patient Condition Patient is doing well, no complaints, stable vital signs, no apparent adverse anesthesia problems. No complications reported per nursing. [place] [facility] [place] Yes MICHELLE JOHNSON CRNA Apr 16, 2020 14:05
== END 2020-04-16 14:35 | disposition home or self-care (01) ==
LOC: SDC 09:59
PROVIDERS: ATTEND Obstetrics & Gynecology
DX: N93.9 Abnormal uterine and vaginal bleeding, unspecified (principal); D50.0 Iron deficiency anemia secondary to blood loss (chronic); N94.6 Dysmenorrhea, unspecified; N92.1 Excessive and frequent menstruation with irregular cycle; G43.909 Migraine, unspecified, not intractable, without status migrainosus; Z79.899 Other long term (current) drug therapy; Z88.5 Allergy status to narcotic agent; Z88.1 Allergy status to other antibiotic agents; Z88.8 Allergy status to other drugs, medicaments and biological substances
CPT/HCPCS: 36415; 84703; 85025; 86850; 86900; 86901; 87081

== ENCOUNTER 2022-12-24 08:50 | Emergency (ER) | payer OTHER ==
[~2022-12-24] VITALS: Ht 167.7 cm; Wt 88.4 kg
[~2022-12-24 08:50] MED LIST changes: +ACET-789 PO; +CYCL10TA25; +CYCL10TA25 PO; -CYCL10TA9; -CYCL10TA9 PO; +DOXY100C5 PO; -DULO60CA6 PO; +DULO60CA7 PO; +IBUP-1780 PO; -LISI10TA2 PO; +LISI10TA25 PO; -OXYC-471 PO; +OXYC1TAB11 PO
--- NOTE | 2022-12-24 09:05 | ED EENT ---
History of Present Illness General Stated Complaint: RT EYE PAIN AND PROBLEMS History of Present Illness Date Seen by Provider: Dec 24, 2022 Time Seen by Provider: 09:05 Initial Comments Patient is complaining of blurred vision and right pain. She reports that she awoke with it. That she feels like something is in her eye. She went to urgent care where they did a tetracaine and fluorescein eye exam do not see any foreign bodies or corneal abrasions. She comes to the ER following return of the pain following tetracaine wearing off. Pain seems to be more in the upper lid. Allergies and Home Medications Allergies Coded Allergies: azithromycin (Unverified Allergy, Severe, ANAPHYLAXIS, 04/10/20) morphine (Unverified Allergy, Severe, ANAPHYLAXIS, 04/10/20) aspirin (Unverified Allergy, Mild, ITCHING/RASH, 04/10/20) diclofenac (Unverified Allergy, Unknown, UNSURE, 04/10/20) Uncoded Allergies: GABEPENTIN (Adverse Reaction, Intermediate, SWELLING, 03/11/17) Patient Home Medication List Home Medication List Reviewed: Yes Acetaminophen with Codeine (Tylenol with Codeine #3 Tablet) 1 Each Tablet, 1 EACH PO Q4H Prescribed by: SHAKIRA MAI on 04/16/20 1359 Doxycycline Hyclate (Doxycycline Hyclate) 100 Mg Capsule, 100 MG PO Q12H Prescribed by: SHAKIRA MAI on 04/16/20 1359 Duloxetine HCl (Cymbalta) 60 Mg Capsule.dr, 60 MG PO DAILY, (Reported) Entered as Reported by: PETER WAHL on 04/10/20 141 Ibuprofen (Ibuprofen) 800 Mg Tablet, 800 MG PO Q8H PRN for PAIN-MILD Prescribed by: SHAKIRA MAI on 04/16/20 1359 Lisinopril (Lisinopril) 10 Mg Tablet, 10 MG PO DAILY, (Reported) Entered as Reported by: PETER WAHL on 04/10/20 141 Review of Systems Review of Systems Constitutional: No chills, No fever Eyes: Blurred Vision, Pain, Photophobia Ears: No Symptoms Reported Nose: no symptoms reported Mouth: no symptoms reported Throat: no symptoms reported Respiratory: no symptoms reported Cardiovascular: no symptoms reported Past Agktihh-Tdqiud-Emwjxo Hx Seasonal Allergies Seasonal Allergies: Yes Past Medical History Surgeries: Yes (FUSION C-7,SHOULDER) Orthopedic, Tonsillectomy, Tubal Ligation Respiratory: No Cardiac: Yes Hypertension Neurological: Yes Headaches /Migraines Reproductive Disorders: No Female Reproductive Disorders: Menstrual Problems 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 oz. 99.339794yb; 31.76 BMI Method:Stated General Appearance: WD/WN, no apparent distress Eyes: right eye normal inspection, right eye other (No foreign body or acute findings noted.) Nose: normal inspection, active bleeding Neck: full range of motion, supple Cardiovascular: normal peripheral pulses, regular rate, rhythm Respiratory: chest non-tender, lungs clear, normal breath sounds Gastrointestinal: non tender, soft Neurologic/Psychiatric: alert, normal mood/affect, oriented x 3 Skin: normal color, warm/dry Progress/Results/Core Measures Results/Orders My Orders Orders - DORA CLAUDIO DO Tetracaine 0.5% Ophth Claire Sdv (Tetracai (12/24/22 09:30) Vital Signs/I&O 12/24/22 09:03 Pulse 68 B/P (MAP) 134/90 (105) Pulse Ox 99 O2 Delivery Room Air Departure Impression Primary Impression: Acute left eye pain Disposition: 01 HOME, SELF-CARE Condition: Unchanged Departure-Patient Inst. Referrals: [facility] (PCP/Family) Primary Care Physician Add. Discharge Instructions: Please go directly to the senior technical business analyst office for further evaluation. We have called and made them aware that you are coming over. [facility] [place] [id number] [place] [id number] [phone] DORA CLAUDIO DO Dec 24, 2022 09:05
[2022-12-24] MEDS ORDERED: TETRACAINE 0.5% OPHTH SOLN 4 ML BTL (SINGLE DOSE ONLY) OP ONE (09:30)
[2022-12-24 09:35] VITALS: BP 134/90
== END 2022-12-24 09:35 | disposition home or self-care (01) ==
LOC: EDUNIT# 08:50 → ER 08:55
DX: H57.11 Ocular pain, right eye (principal)
CPT/HCPCS: 99281